=== PATIENT | male | born 1980 | race Caucasian/White ===

== ENCOUNTER 2022-03-02 08:36 | Outpatient (CLI) | payer OTHER, SELFPAY ==
--- NOTE | 2022-03-13 15:35 | WPDHOMESLEEP ---
Sleep Study - Home Unattended Date of Study: 03/02/22 Ordering Provider: Krista Zhu MD Interpreting Provider: Zaida Samaniego, DO Home Sleep Study Type: Apnea Link Air Height: 1.98 m Weight: 83.915 kg Body Mass Index: 21.4 Neck Circumference (inches): 15 Fay: 5 Reason for Sleep Study Witnessed apneas despite wearing oral appliance Sleep History The patient is a 41-year-old male with anxiety and alcoholism that had a sleep study ordered by his primary care for evaluation of sleep apnea. The patient occasionally awakens from sleep short of breath. He denies awakening at night with heartburn, belching or cough. He constantly snores loud enough that others complain. He occasionally has trouble sleeping when he has cold. He occasionally wakes up gasping for air throughout the night. He frequently has breathing problems at night observed by himself or others. He frequently sweats excessively at night. He denies having heart palpitations or irregular heartbeats during the night. He rarely falls asleep during the day but never while driving. He denies sleep paralysis, cataplexy and hypnagogic / hypnopompic hallucinations. He rarely has trouble at school or work due to sleepiness. He rarely feels afraid of going to sleep. He rarely has nightmares. He rarely remembers his dreams. He rarely has thoughts racing through his mind. He rarely feels sad or depressed. He occasionally has anxiety. He denies having muscular tension. He rarely notices parts of his body jerk. He occasionally kicks during the night. He denies having crawling and aching feelings in his legs as well as leg pain during the night. He occasionally grinds his teeth during sleep but never awakens with morning jaw pain. He is rarely bothered by pain during the day and never awakened by pain during the night. He denies waking up feeling stiff in the morning. He denies waking up with sore achy muscles. He rarely wakes up with pain in the neck, spine or other joints. He goes to bed at 11:00 p.m. on weekdays and at midnight on the weekends. It takes him 15-20 minutes to fall asleep. He wakes up twice throughout the night for unknown reasons. He is unsure how long it takes him to fall back asleep. He wakes up at 5:00 a.m. on weekdays and at 6:30 a.m. on the weekends. He typically gets 6-7 hours of sleep per night. He will stay in bed for 5 minutes after waking up in the morning. He currently lives with his and 3 children. He does not consume any caffeinated beverages within 2 hours of bedtime. He does not engage in physical exercise before bedtime. He will watch television before falling asleep. He denies taking naps in the afternoon or the evening. He will drink coffee after work on weekdays and will consume coffee all day on the weekends. He uses 1 can of smokeless tobacco per day. He denies alcohol use. He will use cannabis occasionally. [facility] Past Medical History Medical History Anxiety Situational anxiety Surgical History Surgical History H/O vasectomy (~2015) Family History Family History Mother Patient's mother is , Onset Age: 69 Other Family history of coronary artery disease Social History Social History Social History: Single, recently engaged and planning to in the next year. 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 Smoking status: Never smoker Second hand tobacco smoke exposure: No Alcohol intake: never Substance use: never Substance use type: does not use Lack of Transportation: No Lack of Food: Never True Current Housing: I Have Housing Concerned About Future Housing: No Difficulty Paying Gas/Electric Bills: No Difficulty Paying for Meds: No
[2022-03-13 15:48] VITALS: BMI 21.4
== END 2022-03-03 10:52 | disposition home or self-care (01) ==
PROVIDERS: PCP Family Medicine; Visit Provider Family Medicine
DX: G47.33 Obstructive sleep apnea (adult) (pediatric) (principal); G47.10 Hypersomnia, unspecified
CPT/HCPCS: 95806

== ENCOUNTER 2024-08-08 00:51 | Day surgery (SDC) | payer OTHER, SELFPAY ==
[2024-07-30 10:00] VITALS: BMI 23.6
[2024-08-08 11:13] VITALS: BP 129/79; PULSE 67; RESP 16; TEMP 37; O2SAT 100
[2024-08-08] MEDS: LACTATED RINGERS 1,000 ML 150 ML IV CONT (11:21)
--- NOTE | 2024-08-08 12:03 | P.PNAN_ITS ---
Anes - Initial Pre Proc Eval Procedure: Operation Date: 08/08/24 12:30 Proposed Procedures p Screening Colonoscopy - Cornell Dow MD Date/Time: 08/08/24 12:03 Surgeon: Cornell Dow MD Pre Op Diagnosis: Encounter for screening for malignant neoplasm of Patient Data Age: 44 Gender: M Height: 1.98 m Weight: 93 kg Last Vital Signs Temp 37.0 C 08/08/24 11:13 Pulse 67 08/08/24 11:13 Resp 16 08/08/24 11:13 BP 129/79 08/08/24 11:13 Pulse Ox 100 08/08/24 11:13 O2 Del Method Room Air 08/08/24 11:13 Allergies Allergy/AdvReac Type Severity Reaction Status Date / Time No Known Allergies Allergy Verified 08/08/24 11:12 Home Medications ?Medication ?Instructions ?Recorded ?Confirmed ?Type alprazolam 0.25 mg tablet 0.25 mg PO DAILY PRN anxiety #30 06/18/23 07/30/24 Rx tabs propranolol 20 mg tablet 20 mg PO BID #60 tabs 01/14/24 08/08/24 Rx testosterone enanthate 75 mg/0.5 75 mg subcut WEEKLY 01/18/24 08/08/24 History mL subcutaneous auto-injector trazodone 50 mg tablet 50 mg PO QHS PRN insomnia #30 tabs 01/29/24 07/30/24 Rx Patient hx anesthesia problems: none Family hx anesthesia problems: none Results Review: All pre-operative results and documents have been reviewed as part of the pre- operative evaluation. [facility] Past Medical History Medical History Situational anxiety Anxiety Surgical History Surgical History H/O vasectomy (~2015) Family History Family History Mother Patient's mother is , Onset Age: 69 Other Family history of coronary artery disease Social History Social History Social History: Single, recently engaged and planning to in the next year. 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 Substance use: current Substance use type: marijuana Other substance usage details: Vape/smoking Last use: Daily Lack of Transportation: No Lack of Food: Never True Current Housing: I Have Housing Concerned About Future Housing: No Difficulty Paying Gas/Electric Bills: No Difficulty Paying for Meds: No Currently Unemployed: No Education: Master's Degree or Higher Difficulty w/ Childcare or Family Care: No Living arrangements: with family Occupation/Education: occupation Gender identity (if verbalized by the patient): Male Spiritual care concerns: No Anes - Eval Final PreProcedure Day of Procedure 08/08/24 12:03 Patient weight: normal Heart: regular rate and rhythm Lungs: clear to auscultation Airway: Mallampati scale class II Neurological: alert and oriented Last oral intake: >/= 8 hours ASA classification: II Emergent: no Anesthetic plan: proceed Anesthesia type and monitoring: general GIVS and standard monitoring Results Review: All pre-operative results and documents have been reviewed as part of the pre- operative evaluation. Informed Consent: The patient's anesthetic plan and its attendant risks and benefits were discussed with the patient/family/POA. Questions were solicited and answers provided to the satisfaction of the patient/family/POA.
--- NOTE | 2024-08-08 12:03 | PM.IMHP ---
H&P: HPI History of Present Illness Date/Time: 08/08/24 12:03 Chief Complaint: screening colonoscopy Narrative: This is the patient's first colonoscopy. There are no GI symptoms and there is no family history of colorectal cancer. Review of Systems Review of Systems: All systems reviewed & are unremarkable except as noted in HPI and below PMFSH Past Medical History Medical History Anxiety Situational anxiety Surgical History Surgical History H/O vasectomy (~2015) Family History Family History Mother Patient's mother is , Onset Age: 69 Other Family history of coronary artery disease Social History Social History Social History: Single, recently engaged and planning to in the next year. 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 Substance use: current Substance use type: marijuana Other substance usage details: Vape/smoking Last use: Daily Lack of Transportation: No Lack of Food: Never True Current Housing: I Have Housing Concerned About Future Housing: No Difficulty Paying Gas/Electric Bills: No Difficulty Paying for Meds: No Currently Unemployed: No Education: Master's Degree or Higher Difficulty w/ Childcare or Family Care: No Living arrangements: with family Occupation/Education: occupation Gender identity (if verbalized by the patient): Male Spiritual care concerns: No Meds Home Medications and Allergies Home Medications ?Medication ?Instructions ?Recorded ?Confirmed ?Type alprazolam 0.25 mg tablet 0.25 mg PO DAILY PRN anxiety #30 06/18/23 07/30/24 Rx tabs propranolol 20 mg tablet 20 mg PO BID #60 tabs 01/14/24 08/08/24 Rx testosterone enanthate 75 mg/0.5 75 mg subcut WEEKLY 01/18/24 08/08/24 History mL subcutaneous auto-injector trazodone 50 mg tablet 50 mg PO QHS PRN insomnia #30 tabs 01/29/24 07/30/24 Rx Allergies Allergy/AdvReac Type Severity Reaction Status Date / Time No Known Allergies Allergy Verified 08/08/24 11:12 Vital Signs Vital Signs - 24 hr 08/08/24 11:13 Temperature 98.6 F Pulse Rate 67 Respiratory Rate 16 Blood Pressure 129/79 Pulse Oximetry 100 Oxygen Delivery Room Air Exam Const: General: cooperative and healthy appearing Resp: Effort & Inspection: normal respiratory effort and able to speak in complete sentences Auscultation: clear to auscultation bilaterally Cardio: Rate: regular rate Rhythm: regular rhythm GI: Inspection: normal to inspection GI Palp: No No hepatosplenomegaly present Auscultation: normal bowel sounds Rectal Exam: deferred Skin: General skin exam: normal color Psych: Appearance: grossly normal Mental Status: mental status grossly normal Assessment and Plan Assessment and plan (1) Screening for colon cancer: Code(s): Z12.11 - Encounter for screening for malignant neoplasm of colon Status: Acute Assessment and Plan: The patient is deemed a good candidate for the procedure. Consent signed. Will proceed.
[2024-08-08] MEDS: SIMETHICONE ORAL SUSPENSION 20 MG/0.3 ML 30 ML BOTTLE 0.6 ML IRRIGATION (12:17)
--- NOTE | 2024-08-08 12:27 | P.PNAN_ITS ---
Anes - Initial Pre Proc Eval Procedure: Operation Date: 08/08/24 12:30 Proposed Procedures p Screening Colonoscopy - Cornell Dow MD Date/Time: 08/08/24 12:27 Surgeon: Cornell Dow MD Pre Op Diagnosis: Encounter for screening for malignant neoplasm of Patient Data Age: 44 Gender: M Height: 1.98 m Weight: 93 kg Last Vital Signs Temp 37.0 C 08/08/24 11:13 Pulse 67 08/08/24 11:13 Resp 16 08/08/24 11:13 BP 129/79 08/08/24 11:13 Pulse Ox 100 08/08/24 11:13 O2 Del Method Room Air 08/08/24 11:13 Allergies Allergy/AdvReac Type Severity Reaction Status Date / Time No Known Allergies Allergy Verified 08/08/24 11:12 Home Medications ?Medication ?Instructions ?Recorded ?Confirmed ?Type alprazolam 0.25 mg tablet 0.25 mg PO DAILY PRN anxiety #30 06/18/23 07/30/24 Rx tabs propranolol 20 mg tablet 20 mg PO BID #60 tabs 01/14/24 08/08/24 Rx testosterone enanthate 75 mg/0.5 75 mg subcut WEEKLY 01/18/24 08/08/24 History mL subcutaneous auto-injector trazodone 50 mg tablet 50 mg PO QHS PRN insomnia #30 tabs 01/29/24 07/30/24 Rx Patient hx anesthesia problems: none Family hx anesthesia problems: none Results Review: All pre-operative results and documents have been reviewed as part of the pre- operative evaluation. [facility] Past Medical History Medical History Situational anxiety Anxiety Surgical History Surgical History H/O vasectomy (~2015) Family History Family History Mother Patient's mother is , Onset Age: 69 Other Family history of coronary artery disease Social History Social History Social History: Single, recently engaged and planning to in the next year. 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 Substance use: current Substance use type: marijuana Other substance usage details: Vape/smoking Last use: Daily Lack of Transportation: No Lack of Food: Never True Current Housing: I Have Housing Concerned About Future Housing: No Difficulty Paying Gas/Electric Bills: No Difficulty Paying for Meds: No Currently Unemployed: No Education: Master's Degree or Higher Difficulty w/ Childcare or Family Care: No Living arrangements: with family Occupation/Education: occupation Gender identity (if verbalized by the patient): Male Spiritual care concerns: No Anes - Eval Final PreProcedure Day of Procedure 08/08/24 12:27 Patient weight: normal Heart: regular rate and rhythm Lungs: clear to auscultation Airway: Mallampati scale class II Neurological: alert and oriented Last oral intake: >/= 8 hours ASA classification: II Emergent: no Anesthetic plan: proceed Anesthesia type and monitoring: general GIVS and standard monitoring Results Review: All pre-operative results and documents have been reviewed as part of the pre- operative evaluation. Informed Consent: The patient's anesthetic plan and its attendant risks and benefits were discussed with the patient/family/POA. Questions were solicited and answers provided to the satisfaction of the patient/family/POA.
--- NOTE | 2024-08-08 12:51 | S_PTH ---
PATIENT: Mendez Jordan LOC: [facility] U#:[id number] AGE/SX: 44/M ROOM: RE08/08/[address]: Cornell Dow MD : 1980 BED: DIS: 08/08/2024 SPEC #: [id number] RECD: 08/08/24 13:15 STATUS: KIMBER RECori #: [id number] HERBERT: 08/08/24 12:[address]: Cornell Dow DEPT: [facility] Surgical RECD BY: Patricia Bruno ENTERED: 08/08/24 13:15 SP TYPE: Surgical OTHR DR: Krista Zhu MD Tissues: A - Colon Polypectomy Procedures: Hematoxylin and Eosin Stain Gross and Microscopic Level 4
[2024-08-08 12:52] VITALS: BP 96/61; PULSE 65; RESP 12; O2SAT 98
[2024-08-08 13:02] VITALS: BP 97/85; PULSE 61; RESP 11; O2SAT 100
[2024-08-08 13:12] VITALS: BP 104/57; PULSE 66; RESP 21; O2SAT 100
[2024-08-08 13:22] VITALS: BP 115/72; PULSE 65; RESP 20; O2SAT 100
== END 2024-08-08 13:31 | disposition home or self-care (01) ==
PROVIDERS: PCP Family Medicine; Referring Provider Student in an Organized Health Care Education/Training Program; Visit Provider Internal Medicine Gastroenterology
PROC: 0DJD8ZZ Inspection of Lower Intestinal Tract, Via Natural or Artificial Opening Endoscopic (ICD-10-PCS; CPT 45378; principal; 2024-08-08 12:30)
DX: Z12.11 Encounter for screening for malignant neoplasm of colon (principal); D12.4 Benign neoplasm of descending colon; K57.30 Diverticulosis of large intestine without perforation or abscess without bleeding; F41.8 Other specified anxiety disorders; F17.220 Nicotine dependence, chewing tobacco, uncomplicated; F17.290 Nicotine dependence, other tobacco product, uncomplicated; F12.90 Cannabis use, unspecified, uncomplicated; Z98.890 Other specified postprocedural states; Z82.49 Family history of ischemic heart disease and other diseases of the circulatory system
CPT/HCPCS: 45385; 88305; J2003; J2704; J7120